=== PATIENT | male | born 1980 | race Caucasian/White ===

== ENCOUNTER 2017-04-26 01:00 | Emergency (ER) | payer MEDICAID, SELFPAY ==
[~2017-04-26] VITALS: Ht 172.7 cm; Wt 79.4 kg
[2017-04-26 01:01] VITALS: BP 154/92
== END 2017-04-26 01:51 | disposition home or self-care (01) ==
LOC: ED 01:30
DX: R42 Dizziness and giddiness (principal)
CPT/HCPCS: 93005; 99283

== ENCOUNTER 2018-01-12 22:40 | Emergency (ER) | payer MEDICAID ==
[~2018-01-12] VITALS: Ht 172.7 cm; Wt 77.4 kg
[2018-01-12 23:56] LABS: BASOPHILS # (AUTO) 0.09 x10^3/uL (0-0.1); BASOPHILS % (AUTO) 1 % (0-1); EOSINOPHILS % (AUTO) 2 % (1-7); LYMPHOCYTES # (AUTO) 2.76 x10^3/uL (1-3.4); LYMPHOCYTES % (AUTO) 24 % (22-44); MD NO; MEAN CORPUSCULAR HEMOGLOBIN 31.1 pg (27.5-34.5); MEAN CORPUSCULAR HGB CONC 34.6 g/dL (33.2-36.2); MEAN CORPUSCULAR VOLUME 89.9 fL (81-97); MEAN PLATELET VOLUME 8.6 fL (7.4-10.4); MONOCYTES # (AUTO) 0.68 x10^3/uL (0.2-0.8); MONOCYTES % (AUTO) 6 % (2-9); NEUTROPHILS # (AUTO) 7.77 x10^3/uL (1.8-6.8); NEUTROPHILS % (AUTO) 68 % (42-75); PLATELET COUNT 302 x10^3/uL (130-400); RED BLOOD COUNT 5.28 x10^6/uL (4.38-5.82); RED CELL DISTRIBUTION WIDTH 13.3 % (9.4-14.8)
[2018-01-13] MEDS ORDERED: PROCHLORPERAZINE 10MG TABLET PO ONE
[2018-01-13] MEDS ORDERED: IBUPROFEN 200 MG TABLET PO ONE
[2018-01-13] MEDS ORDERED: DIPHENHYDRAMINE 25 MG CAPSULE PO ONE
[2018-01-13] MEDS ORDERED: DIPHENHYDRAMINE 25 MG CAPSULE ONE (00:06)
[2018-01-13] MEDS ORDERED: IBUPROFEN 800 MG TABLET ONE (00:06)
[2018-01-13 00:08] LABS: ALANINE AMINOTRANSFERASE 32 U/L (12-78); ALBUMIN 3.8 g/dL (3.4-5.0); ANION GAP 7 mmol/L (5-15); CHLORIDE 107 mmol/L (98-107); CREATININE 0.87 mg/dL (0.7-1.3)
[2018-01-13 00:10] LABS: ALKALINE PHOSPHATASE 81 U/L (45-117); BILIRUBIN,TOTAL 0.6 mg/dL (0.2-1.0); TOTAL PROTEIN 7.6 g/dL (6.4-8.2)
[2018-01-13 02:25] VITALS: BP 152/90
== END 2018-01-13 02:27 | disposition home or self-care (01) ==
LOC: ED 23:39
DX: R42 Dizziness and giddiness (principal); I10 Essential (primary) hypertension; K21.9 Gastro-esophageal reflux disease without esophagitis; J45.909 Unspecified asthma, uncomplicated
CPT/HCPCS: 36415; 80053; 80307; 85025; 93005; 99285